=== PATIENT | male | born 1950 | race Hispanic/Latino ===

== ENCOUNTER 2018-07-30 08:28 | Day surgery (SDC) | payer MEDICARE ==
[2018-07-30] VITALS (10 sets, daily range): BP systolic 77–112; BP diastolic 44–81
[~2018-07-30] VITALS: Ht 182.9 cm; Wt 91.6 kg
[~2018-07-30 08:28] MED LIST: SODIUM CHLORIDE 0.9% 1000ML 1,000 ML IV ONE
[2018-07-30] MEDS ORDERED: LIDOCAINE HCL 1% 20 ML VIAL ONE (11:29)
[2018-07-30] MEDS ORDERED: PROPOFOL 10 MG/ML 20ML VIAL IV ONE (11:29)
[2018-07-30] MEDS ORDERED: LEVO112T7 PO (11:35)
[2018-07-30] MEDS ORDERED: LUTE20CA PO (11:35)
[2018-07-30] MEDS ORDERED: CARB200C4 PO (11:35)
[2018-07-30] MEDS ORDERED: FURO40TA5 PO (11:35)
[2018-07-30] MEDS ORDERED: SACU1TAB PO (11:35)
[2018-07-30] MEDS ORDERED: AMIO200T5 PO (11:35)
[2018-07-30] MEDS ORDERED: LEVO100T12 PO (11:35)
[2018-07-30] MEDS ORDERED: ASPI-555 PO (11:35)
[2018-07-30] MEDS ORDERED: ATOR20TA65 PO (11:35)
== END 2018-07-30 12:50 | disposition home or self-care (01) ==
LOC: DAH 08:28 → ENDO 08:28
PROVIDERS: ATTEND Internal Medicine
DX: K29.50 Unspecified chronic gastritis without bleeding (principal); K21.0 Gastro-esophageal reflux disease with esophagitis; K44.9 Diaphragmatic hernia without obstruction or gangrene; K31.89 Other diseases of stomach and duodenum; K22.8 Other specified diseases of esophagus; K50.90 Crohn's disease, unspecified, without complications; E78.5 Hyperlipidemia, unspecified; E03.9 Hypothyroidism, unspecified; C32.0 Malignant neoplasm of glottis; I25.2 Old myocardial infarction; I11.0 Hypertensive heart disease with heart failure; I50.9 Heart failure, unspecified; I25.10 Atherosclerotic heart disease of native coronary artery without angina pectoris; Z87.891 Personal history of nicotine dependence; Z79.82 Long term (current) use of aspirin; Z79.899 Other long term (current) drug therapy; Z95.0 Presence of cardiac pacemaker; Z80.0 Family history of malignant neoplasm of digestive organs
CPT/HCPCS: 43239; 82948 ×2; 88305; 93005; A4606; J2704; J7030

== ENCOUNTER → 2020-02-06 | Outpatient (CLI) | payer MEDICARE ==
[~2020-02-06] MED LIST changes: +AMIO200T6 PO; +ASPI-556 PO; +ATOR20TA65 PO; +CARB200C7 PO; +FURO40TA5 PO; +LEVO100T12 PO; +LEVO112T7 PO; +LUTE20CA PO; +SACU1TAB PO; -SODIUM CHLORIDE 0.9% 1000ML 1,000 ML IV ONE
== END | disposition home or self-care (01) ==
LOC: RAH 14:09
PROVIDERS: ATTEND Urology
DX: K80.20 Calculus of gallbladder without cholecystitis without obstruction (principal); M47.815 Spondylosis without myelopathy or radiculopathy, thoracolumbar region; N20.0 Calculus of kidney
CPT/HCPCS: 74018; 76100

== ENCOUNTER → 2020-02-27 | Outpatient (CLI) | payer MEDICARE | END | disposition home or self-care (01) | LOC: RAH 11:47 | PROVIDERS: ATTEND Urology | DX: N20.0 Calculus of kidney (principal); M51.36 Other intervertebral disc degeneration, lumbar region | CPT/HCPCS: 74018; 76100 ==

== ENCOUNTER → 2020-04-09 | Outpatient (CLI) | payer MEDICARE | END | disposition home or self-care (01) | LOC: RAH 13:45 | PROVIDERS: ATTEND Urology | DX: N20.0 Calculus of kidney (principal) | CPT/HCPCS: 74018; 76100 ==